=== PATIENT | female | born 1970 | race Hispanic/Latino ===

== ENCOUNTER 2017-11-02 15:39 | Outpatient (CLI) | payer SELFPAY | END 2017-11-02 15:40 | disposition home or self-care (01) | LOC: BICMAMMO 15:39 | PROVIDERS: ATTEND Obstetrics & Gynecology | DX: Z12.31 Encounter for screening mammogram for malignant neoplasm of breast (principal) | CPT/HCPCS: 77063; 77067 ==

== ENCOUNTER 2023-07-02 09:22 | Outpatient (CLI) | payer SELFPAY | END 2023-07-02 09:23 | disposition home or self-care (01) | LOC: ULT 09:22 | PROVIDERS: ATTEND Nurse Practitioner Family | DX: M25.432 Effusion, left wrist (principal); I82.612 Acute embolism and thrombosis of superficial veins of left upper extremity ==